=== PATIENT | male | born 1955 | race Caucasian/White ===

== ENCOUNTER 2020-11-14 09:18 | Outpatient (CLI) | payer SELFPAY ==
[2020-11-14 11:40] LABS: Hemoglobin 15.8 g/dL (13.5-17.5); Mean Corpuscular HGB CONC 32.6 g/dL (32.0-36.0); Mean Corpuscular Hemoglobin 29.4 pg (27.0-33.0); Mean Corpuscular Volume 90.1 fl (81.2-95.1); Mean Platelet Volume 12.7 fl (7.4-10.4); Platelet Count 174 10x3/uL (150-450); RBC Distribution Width 13.7 % (11.5-14.5); Red Blood Cell (RBC) Count 5.38 10x6/uL (4.32-5.72); White Blood Cell (WBC) Count 5.5 10x3/uL (3.5-10.5)
[2020-11-14 12:11] LABS: Anion Gap 15 mmol/L (10-20); BUN (Urea Nitrogen) 12 mg/dL (8.4-25.7); Calc. Creatinine Clearance 0 mL/min (70-130); Calcium 9.7 mg/dL (7.8-10.44); Carbon Dioxide 24 mmol/L (23-31); Chloride 107 mmol/L (98-107); Glucose 94 mg/dL (80-115); Potassium 4.5 mmol/L (3.5-5.1); Sodium 141 mmol/L (136-145)
[2020-11-14 20:40] LABS: SARS-CoV-2 PCR by NAA Not Detected (NotDetected)
== END 2020-11-14 09:19 | disposition home or self-care (01) ==
LOC: EDBD 09:18 → LABBT 09:18
PROVIDERS: ATTEND Neurological Surgery
DX: Z01.818 Encounter for other preprocedural examination (principal); M54.12 Radiculopathy, cervical region; Z20.822 Contact with and (suspected) exposure to COVID-19
CPT/HCPCS: 80048; 85027; 93005; 93010; U0003; U0005

== ENCOUNTER 2020-11-19 06:08 | Observation (INO) | payer OTHER ==
[2020-11-19] MEDS ORDERED: SUGAMMADEX SODIUM 500 MG/5 ML VIAL ONE (07:13)
[2020-11-19] MEDS ORDERED: Phenylephrine 10 MG/ML VIAL ONE (07:13)
[2020-11-19] MEDS ORDERED: Fentanyl 100 MCG/2 ML VIAL ONE ×3 (07:13→10:32)
[2020-11-19] MEDS ORDERED: PHENYLEPHRINE-NS 100 MCG/ML 10 ML SYRINGE ONE (08:40)
[2020-11-19] MEDS ORDERED: Rocuronium Bromide 10 MG/ML (10ML VIAL) ONE (08:40)
[2020-11-19] MEDS ORDERED: Lidocaine 1% PF 5 ML VIAL ONE (08:40)
[2020-11-19] MEDS ORDERED: Dexamethasone 20 MG/5 ML VIAL ONE (08:40)
[2020-11-19] MEDS ORDERED: PROPOFOL 200 MG/20 ML VIAL ONE (08:40)
[2020-11-19] MEDS ORDERED: Ondansetron PF 4 MG/2 ML Vial ONE (08:40)
[2020-11-19 10:46] VITALS: BMI 35.6
[2020-11-19] MEDS ORDERED: Non-Formulary Medication 1 EACH PO PRN (10:51)
[2020-11-19] MEDS ORDERED: Promethazine HCl 25 MG/ML VIAL IM PRN (11:00)
[2020-11-19] MEDS ORDERED: diphenhydrAMINE 25 MG CAP PO PRN (11:00)
[2020-11-19] MEDS ORDERED: Ondansetron PF 4 MG/2 ML Vial IVP PRN (11:00)
[2020-11-19] MEDS ORDERED: HYDROcodone/Acetaminophen 10/325 mg Tablet PO PRN ×2 (11:00)
[2020-11-19] MEDS ORDERED: Promethazine HCl 25 MG/ML VIAL IM/IV PRN (11:00)
[2020-11-19] MEDS ORDERED: Scopolamine 1.5 mg/72 hour Patch TD PRN (11:00)
[2020-11-19] MEDS ORDERED: diphenhydrAMINE 50 MG/ML VIAL IVP PRN (11:00)
[2020-11-19] MEDS ORDERED: tiZANidine HCl 4 MG TAB PO PRN (11:00)
[2020-11-19] MEDS ORDERED: Promethazine HCl 12.5 MG SUPP PR PRN (11:00)
[2020-11-19] MEDS ORDERED: Promethazine 25 MG TAB PO PRN (11:00)
[2020-11-19] MEDS ORDERED: Ondansetron HCl/PF 4 MG/2 ML Vial IVP PRN (11:00)
[2020-11-19] MEDS ORDERED: Mag-Al 1200 mg/1200 mg/30 ML UDCUP PO PRN (11:00)
[2020-11-19] MEDS ORDERED: traMADol HCl 50 MG TAB PO PRN ×2 (11:00)
[2020-11-19] MEDS ORDERED: Morphine 2 MG/ML VIAL SLOW IVP PRN (11:00)
[2020-11-19] MEDS: Tamsulosin HCl 0.4 MG CAP PO SCH (12:50)
[2020-11-19] MEDS ORDERED: Tamsulosin HCl 0.4 MG CAP ONE (12:51)
[2020-11-19] MEDS ORDERED: Morphine 4 MG/ML VIAL ONE (13:56)
[2020-11-19] MEDS: Morphine 4 MG/ML VIAL SLOW IVP PRN ×5 (13:59→23:40)
[2020-11-19] MEDS: CEFAZOLIN 2 GM in Premix Bag 1 BAG IVPB SCH ×2 (14:01→21:50)
[2020-11-19] MEDS: Sodium Chloride 0.9% 1,000 ML IV SCH (16:09)
[2020-11-20] MEDS: Sodium Chloride 0.9% 1,000 ML IV SCH (00:37)
[2020-11-20] MEDS ORDERED: CEFAZOLIN 2 GM in Premix Bag 1 BAG IVPB SCH (06:00)
[2020-11-20] MEDS: Tamsulosin HCl 0.4 MG CAP PO SCH (06:17)
[2020-11-20] MEDS ORDERED: Dexamethasone 10 MG/ML VIAL SLOW IVP SCH (06:45)
[2020-11-20] MEDS: Morphine 4 MG/ML VIAL SLOW IVP PRN (06:45)
[2020-11-20 08:43] VITALS: BP 137/88; TEMP 97.5
== END 2020-11-20 10:00 | disposition home or self-care (01) ==
LOC: SDC 06:08 → EDBD 09:30 → INTOOBSV 10:14 → SURG A 10:14 → ONC 15:21
PROVIDERS: ADMIT Neurological Surgery; ATTEND Neurological Surgery
PROC: 0RG10A0 Fusion of Cervical Vertebral Joint with Interbody Fusion Device, Anterior Approach, Anterior Column, Open Approach (ICD-10-PCS; principal; 2020-11-19)
PROC: 0RT30ZZ Resection of Cervical Vertebral Disc, Open Approach (ICD-10-PCS; 2020-11-19)
DX: M50.123 Cervical disc disorder at C6-C7 level with radiculopathy (principal); Z87.891 Personal history of nicotine dependence
CPT/HCPCS: 76000; 96365; 96366; 96375; 96376; C1713; C1776; G0378; J0690; J1100; J2270; J2370; J2405; J2704; J3010

== ENCOUNTER 2021-01-15 09:12 | Outpatient (CLI) | payer OTHER, MEDICARE | END 2021-01-15 09:13 | disposition home or self-care (01) | LOC: TBSIIMAG 09:12 | PROVIDERS: ATTEND Neurological Surgery | DX: M54.12 Radiculopathy, cervical region (principal); Z98.890 Other specified postprocedural states | CPT/HCPCS: 72040 ==